=== PATIENT | female | born 1985 | race Caucasian/White ===

== ENCOUNTER 2017-03-11 09:06 | Emergency (ER) | payer OTHER ==
[2017-03-11 09:53] VITALS: BP 126/77
--- NOTE | 2017-03-11 10:09 | UC ---
Throat Pain/Nasal Dmitry HPI - HPI Summary HPI Summary: 31 y/o female presents to the urgent care c/o sore throat for the past 3 days. Pt states she woke up this morning with dry cough and body aches. Pain is 5/10 with swallowing. she has been taking Dayquil and Nyquil to alleviate symptoms. Pt rosa BELTRE, SOB, chest pain, N/V/D, abdominal pain. - History of Current Complaint Chief Complaint: UCGeneralIllness Stated Complaint: THROAT COMPLAINT Time Seen by Provider: 03/11/17 10:03 Hx Obtained From: Patient Hx Last Menstrual Period: 02/10/17 ?: No Onset/Duration: Gradual Onset, Lasting Days - 3 days Severity: Moderate Pain Intensity: 5 Pain Scale Used: 0-10 Numeric Cough: Nonproductive Associated Signs & Symptoms: Positive: Dysphagia, Nasal Discharge - clear discharge. Negative: Fever, Vomiting - Epiglottits Risk Factors Epiglottis Risk Factors: Negative - Allergies/Home Medications Allergies/Adverse Reactions: Allergies Allergy/AdvReac Type Severity Reaction Status Date / Time No Known Allergies Allergy Verified 03/11/17 09:53 Home Medications: Home Medications Dextromethorphan-Phenylephrine [Day Time Multi-Symptom Co 10-5-325 mg] [History] Levonorgestrel-Ethinyl Estradi [Levonorgestrel and Ethiny 0.1-0.02 & 0.01 mg] 03/11/17 [History] PMH/Surg Hx/FS Hx/Imm Hx Previously Healthy: Yes - Pt denies PMHX - Surgical History Surgical History: None - Family History Known Family History: Positive: Cardiac Disease - Social History Occupation: Employed Full-time Lives: With Family Alcohol Use: Weekly Substance Use Type: None Smoking Status (MU): Never Smoked Tobacco - Immunization History Most Recent Influenza Vaccination: not current Review of Systems Constitutional: Negative Skin: Negative Eyes: Negative ENT: Sore Throat, Nasal Discharge Respiratory: Cough - dry cough Cardiovascular: Negative Gastrointestinal: Negative Genitourinary: Negative Motor: Negative Neurovascular: Negative Musculoskeletal: Negative Neurological: Negative Psychological: Negative Is Patient Immunocompromised?: No All Other Systems Reviewed And Are Negative: Yes Physical Exam Triage Information Reviewed: Yes Vital Signs: Initial Vital Signs Temp 99.5 F 03/11/17 09:44 Pulse 84 03/11/17 09:44 Resp 18 03/11/17 09:44 BP 126/77 03/11/17 09:44 Pulse Ox 100 03/11/17 09:44 - Additional Comments VITAL SIGNS: Reviewed. GENERAL: Patient is a well developed and nourished female who is sitting comfortable in the examining table. Patient is not in any acute respiratory distress. HEAD AND FACE: No signs of trauma. No ecchymosis, hematomas or skull depressions. No sinus tenderness. EYES: PERRLA, EOMI x 2, No injected conjunctiva, no nystagmus. No photophobia. EARS: Hearing grossly intact. Ear canals and tympanic membranes are within normal limits. NOSE: edematous, erythematous nasal congestion with clear nasal discharge MOUTH: Positive pharynx with erythema, no exudates, no palatal petechiae. B/L tonsillar enlargement with no exudate. Uvula in midline. NECK: Supple, trachea is midline, Positive anterior cervical lymphadenopathy, no JVD, no carotid bruit, no c-spine tenderness, neck with full ROM. CHEST: Symmetric, no tenderness at palpation LUNGS: Clear to auscultation bilaterally. No wheezing or crackles. CVS: Regular rate and rhythm, S1 and S2 present, no murmurs or gallops appreciated. ABDOMEN: Soft, non-tender. No signs of distention. No rebound no guarding, and no masses palpated. Bowel sounds are normal. EXTREMITIES: FROM in all major joints, no edema, no cyanosis or clubbing. NEURO: Alert and oriented x 3. No acute neurological deficits. Speech is normal and follows commands. SKIN: Dry and warm Throat Pain/Nasal Course/Dx - Course Course Of Treatment: 31 y/o female presents to the urgent care c/o sore throat for the past 3 days. Pt states she woke up this morning with dry cough and body aches. Pain is 5/10 with swallowing. she has been taking Dayquil and Nyquil to alleviate symptoms. Pt rosa BELTRE, SOB, chest pain, N/V/D, abdominal pain. Hx obtained. Pt with an upper respiratory infection of examination.Pt advised to increase fluid intake, rest and eat well, take Ibuprofen q6-8hrs PO OTC and continue with Dayquil to alleviate symptoms. Pt understood and agreed with D/C instructions. - Differential Dx/Diagnosis Differential Diagnosis/HQI/PQRI: Influenza, Laryngitis, Mononucleosis, Otitis Media, Peritonsillar Abscess, Pharyngitis, Sinusitis, Tonsillitis, URI Provider Diagnoses: 1- upper respiraotry infection Discharge - Discharge Plan Condition: Stable Disposition: HOME Patient Education Materials: Upper Respiratory Infection (ED) Referrals: Isela Velez [employer]IST [Primary Care Provider] - If Needed Additional Instructions: 1-Please take ibuprofen PO q6-8hrs prn as instructed after meals to alleviate pain and swelling. Increase fluid intake, eat well, rest and avoid strenuous exercise 2-If symptoms do not improve or worsen please return to the urgent care or f/u with your PCP for further evaluation and treatment.
== END 2017-03-11 10:49 | disposition home or self-care (01) ==
LOC: UCCORT 09:06
DX: J06.9 Acute upper respiratory infection, unspecified (principal)
CPT/HCPCS: 87502; 87651; 99211; G0463